=== PATIENT | male | born 1995 | race American Indian/Alaskan Native ===

== ENCOUNTER 2018-08-07 15:09 | Emergency (ER) | payer MEDICAID ==
[2018-08-07] MEDS ORDERED: NACL 0.9% 1000 ML 1,000 ML IV ONE (15:24)
[2018-08-07] MEDS ORDERED: ZOFRAN IV ONE ×2 (15:24→16:21)
[2018-08-07 16:08] LABS: Basophils % (Auto) 0.1 % (0.0-1.8); Eosinophils % (Auto) 0.1 % (0.0-4.3); Hematocrit 41.1 % (35.5-45.6); Hemoglobin 13.8 gm/dl (11.8-15.2); Lymphocytes # (Auto) 1.3 K/mm3 (1.2-5.4); Lymphocytes % (Auto) 6.7 % (13.4-35.0); Mean Corpuscular HGB Conc 34 % (32-34); Mean Corpuscular Volume 94 fl (84-94); Monocytes # (Auto) 1.3 K/mm3 (0.0-0.8); Monocytes % (Auto) 6.9 % (0.0-7.3); Platelet Count 241 K/mm3 (140-440); Red Blood Count 4.37 M/mm3 (3.65-5.03); Red Cell Distribution Width 14.4 % (13.2-15.2)
[2018-08-07] MEDS ORDERED: MORPHINE IV ONE (16:21)
[2018-08-07 16:30] LABS: Alanine Aminotransferase 17 units/L (7-56); Albumin 4.7 g/dL (3.9-5); BUN/Creatinine Ratio 8; Bilirubin,Direct 0.3 mg/dL (0-0.2); Blood Urea Nitrogen 8 mg/dL (9-20); Calcium 9.8 mg/dL (8.4-10.2); Hemolysis Index 21
[2018-08-07] MEDS ORDERED: DILAUDID IV ONE (17:30)
[2018-08-07] MEDS ORDERED: DILAUDID ONE (17:37)
--- NOTE | 2018-08-07 18:31 | Emergency Department Report ---
ED Abdominal Pain HPI - General Chief Complaint: Abdominal Pain Stated Complaint: N/V/ABD PAIN Time Seen by Provider: 08/07/18 15:23 Source: patient Mode of arrival: Ambulatory Limitations: No Limitations - History of Present Illness Initial Comments: 23-year-old male presents to ED with complaint of epigastric pain that started this afternoon. Patient reports associated nausea, vomiting, denies diarrhea or constipation. Denies recent ETOH use. Patient reported similar symptoms in the past, says he was told that he has GERD. MD Complaint: abdominal pain -: This afternoon Location: epigastric Radiation: none Migration to: no migration Severity scale (0 -10): 0 Quality: stabbing, sharp Consistency: constant Improves With: nothing Worsens With: nothing Associated Symptoms: nausea, vomiting - Related Data Previous Rx's Medication Instructions Recorded Last Taken Type Ciprofloxacin HCl [Ciprofloxacin 500 mg PO Q12HR 10 Days #20 tab 08/07/18 Unknown Rx TAB] Dicyclomine [Bentyl] 20 mg PO QID PRN #20 tablet 08/07/18 Unknown Rx Ondansetron [Zofran Odt] 4 mg PO Q8HR PRN #20 tab.rapdis 08/07/18 Unknown Rx metroNIDAZOLE [Flagyl] 500 mg PO Q12HR 10 Days #20 tab 08/07/18 Unknown Rx Allergies Allergy/AdvReac Type Severity Reaction Status Date / Time No Known Allergies Allergy Unverified 08/07/18 15:11 ED Review of Systems ROS: Stated complaint: N/V/ABD PAIN Other details as noted in HPI Comment: All other systems reviewed and negative Constitutional: denies: chills, fever Gastrointestinal: abdominal pain, nausea, vomiting. denies: diarrhea, constipation ED Past Medical Hx - Past Medical History Hx GERD: Yes - Social History Smoking Status: Current Some Day Smoker Substance Use Type: Marijuana - Medications Home Medications: Home Medications Medication Instructions Recorded Confirmed Last Taken Type Ciprofloxacin HCl [Ciprofloxacin 500 mg PO Q12HR 10 Days #20 tab 08/07/18 Unknown Rx TAB] Dicyclomine [Bentyl] 20 mg PO QID PRN #20 tablet 08/07/18 Unknown Rx Ondansetron [Zofran Odt] 4 mg PO Q8HR PRN #20 tab.rapdis 08/07/18 Unknown Rx metroNIDAZOLE [Flagyl] 500 mg PO Q12HR 10 Days #20 tab 08/07/18 Unknown Rx ED Physical Exam - General Limitations: No Limitations General appearance: alert, other (appears uncomfortable) - Head Head exam: Present: atraumatic, normocephalic - Eye Eye exam: Present: normal appearance - ENT ENT exam: Present: mucous membranes moist - Neck Neck exam: Present: normal inspection - Respiratory Respiratory exam: Present: normal lung sounds bilaterally. Absent: respiratory distress - Cardiovascular Cardiovascular Exam: Present: regular rate, normal rhythm - GI/Abdominal GI/Abdominal exam: Present: soft, tenderness (moderate epigastric). Absent: distended - Extremities Exam Extremities exam: Present: normal inspection - Neurological Exam Neurological exam: Present: alert, oriented X3 - Psychiatric Psychiatric exam: Present: normal affect, normal mood - Skin Skin exam: Present: warm, dry, intact, normal color ED Course Vital Signs 08/07/18 08/07/18 08/07/18 16:35 16:45 17:37 Temperature 98.0 F Pulse Rate 90 Respiratory 16 16 16 Rate Blood Pressure 132/66 Blood Pressure [Left] O2 Sat by Pulse 100 Oximetry 08/07/18 19:20 Temperature 98.6 F Pulse Rate 70 Respiratory 16 Rate Blood Pressure Blood Pressure 141/89 [Left] O2 Sat by Pulse 99 Oximetry - Reevaluation(s) Reevaluation #1: 08/07/18 18:52 Pt has received morphine 4 mg, dilaudid 1 mg, yet still complaining of pain. Rolling around on floor. Pt does admit to frequent marijuana use. Will try haldol for symptom control. Possible cannabinoid hyperemesis syndrome. ED Medical Decision Making - Lab Data Result diagrams: 08/07/18 15:58 08/07/18 15:58 - Radiology Data Radiology results: report reviewed, image reviewed - Medical Decision Making 23 yo M w/ onset of epigastric pain. Reports hx of GERD. Vitals normal. WBCs elevated at 19. CT shows colitis. Symptoms improved once given haldol, benadryl, and reglan. Reports marijuana use. Possible cannabinoid hyperemesis syndrome component as well. Pt given rx for cipro, flagyl, zofran, bentyl. Advised to f/u w/ GI. Return precautions given. - Differential Diagnosis cannabinoid hyperemesis syndrome, bowel obstruction, pancreatitis, gallston Critical care attestation.: If time is entered above; I have spent that time in minutes in the direct care of this critically ill patient, excluding procedure time. ED Disposition Clinical Impression: Colitis Disposition: DC-01 TO HOME OR SELFCARE Is pt being admited?: No Condition: Stable Instructions: Acute Abdominal Pain (ED), Infectious Colitis (ED) Prescriptions: Dicyclomine [Bentyl] 20 mg PO QID PRN #20 tablet PRN Reason: abdominal pain Ciprofloxacin HCl [Ciprofloxacin TAB] 500 mg PO Q12HR 10 Days #20 tab metroNIDAZOLE [Flagyl] 500 mg PO Q12HR 10 Days #20 tab Ondansetron [Zofran Odt] 4 mg PO Q8HR PRN #20 tab.rapdis PRN Reason: Vomiting Referrals: [facility] [Provider Group] - 3-5 Days
[2018-08-07] MEDS ORDERED: BENADRYL IV ONE (18:53)
[2018-08-07] MEDS ORDERED: HALDOL IM ONE (18:53)
[2018-08-07 19:01] LABS: Color,Urine Yellow (Yellow)
[2018-08-07 19:02] LABS: Bilirubin,Urine NEG (Negative); Blood,Urine NEG (Negative); Mucus,Urine FEW /HPF; Urobilinogen,Urine < 2.0 mg/dL (<2.0)
[2018-08-07 19:07] LABS: Amphetamine Screen,Urine PRESUMPTIVE NEGATIVE; Benzodiazepines Screen,Urine PRESUMPTIVE NEGATIVE; Cocaine Screen,Urine PRESUMPTIVE NEGATIVE; Methadone Screen,Urine PRESUMPTIVE NEGATIVE
[2018-08-07 19:21] LABS: Cannabinoid Screen,Urine PRESUMPTIVE POSITIVE; Opiate Screen,Urine PRESUMPTIVE POSITIVE
--- NOTE | 2018-08-07 19:30 | Cat Scan Report ---
PROCEDURE: CT ABDOMEN PELVIS W CON TECHNIQUE: Computerized axial tomography of the abdomen and pelvis was performed after the IV inject ion of iodinated nonionic contrast. CT DOSE LENGTH PRODUCT: 1083.8 mGycm HISTORY: epigastric pain COMPARISONS: None . FINDINGS: Lower Lung garcia: No focal abnormalities seen. Upper Abdomen: The liver, the gallbladder, adrenal glands, pancreas and spleen are unremarkable. Kidneys, Ureters and Urinary bladder: No abnormalities are seen. Retroperitoneum: Abdominal aorta appears normal. Nonspecific subcentimeter lymph nodes are seen in the retroperitoneum. No pathologically enlarged ly mph nodes are identified. Bowel: The garcia of the right-sided colon appears thickened best visualized on coronal image 57 seri es 602 and adjacent images suggesting a nonspecific colitis. There is mild increased density in the s ubmucosal layer of the right side of the colon. There is no evidence of bowel obstruction ascites or free intraperitoneal gas. No evidence of bowel obstruction. The appendix is not visualized. No inflam matory changes are seen in the right lower quadrant that would suggest appendicitis. Reproductive organs: The prostate gland does not appear to be enlarged. Other: No acute bone abnormalities are identified. IMPRESSION: Wall thickening visualized right side of the colon as described. Please see above comments. Nonspecif ic colitis is suspected. No other abnormalities are identified.. This document is electronically signed by Devonte Rasmussen MD., August 07 2018 07:29:07 PM ET
[2018-08-07] MEDS ORDERED: REGLAN IV ONE (19:45)
[2018-08-07] MEDS ORDERED: REGLAN ONE (19:54)
--- NOTE | 2018-08-07 20:13 | XRay Report ---
PROCEDURE: XR ABD SERIES W CXR 1V TECHNIQUE: , Abdominal Series 2 views with frontal view of the chest HISTORY: ABD PAIN COMPARISONS: FINDINGS: Residual contrast seen within the renal collecting systems and the urinary bladder. No evidence for p elvocaliectasis No evidence for colonic or small bowel distention. No signs for free air Chest demonstrates no acute infiltrate. Cardiac and mediastinal contours are unremarkable. Pulmonary vasculature is unremarkable IMPRESSION: Contrast within the renal collecting systems and urinary bladder which appear unremarkable Negative abdominal series No acute abnormality identified in the chest. This document is electronically signed by Adiel Staley MD., August 07 2018 08:11:49 PM ET
[2018-08-07 20:19] VITALS: BP 141/89
== END 2018-08-07 20:38 | disposition home or self-care (01) ==
LOC: ED 15:09
DX: K52.9 Noninfective gastroenteritis and colitis, unspecified (principal); F17.200 Nicotine dependence, unspecified, uncomplicated; F12.90 Cannabis use, unspecified, uncomplicated; K21.9 Gastro-esophageal reflux disease without esophagitis; Z79.899 Other long term (current) drug therapy
CPT/HCPCS: 36415; 74022; 74177; 80048; 80076; 80307; 81001; 82550; 83690; 84484; 85025; 96361; 96374; 96375; 99285; J1170; J1200; J1630; J2270; J2405; J2765; J7030; Q9967